=== PATIENT | female | born 1985 | race Caucasian/White ===

== ENCOUNTER 2019-05-03 06:00 | Inpatient (IN) ==
[2019-05-03] MEDS ORDERED: Ondansetron 4 MG/2 ML VIAL IVP PRN (06:30)
[2019-05-03] MEDS ORDERED: Oxytocin 20 units/ LR 1000 mL 20 UNIT/1,000 ML BAG IVC SCH ×2 (06:30→18:35)
[2019-05-03] MEDS ORDERED: Famotidine 20 MG/2 ML VIAL IVP PRN (06:30)
[2019-05-03] MEDS ORDERED: Ringers Solution, Lactated 1,000 ML IVC SCH (06:30)
[2019-05-03] MEDS ORDERED: *HR* Nalbuphine 10 MG/ML AMPUL IVP PRN (06:30)
[2019-05-03] MEDS ORDERED: Naloxone 0.4 MG/ML INJ IVP PRN (06:30)
[2019-05-03] MEDS ORDERED: Metoclopramide 10 MG/2 ML VIAL IVP PRN (06:30)
[2019-05-03] MEDS ORDERED: Ringers Solution, Lactated 1,000 ML ONE (06:38)
[2019-05-03 06:47] LABS: Basophils % 0.2 %; Eosinophils # 0.2 K/mcL (0.0-0.6); Eosinophils % 1.9 %; Hematocrit 35.5 % (35.3-44.9); Hemoglobin 11.7 g/dL (11.5-15.4); Immature Granulocytes % 0.7 % (0-4); Lymphocytes # 2.3 K/mcL (0.6-4.6); Mean Corpuscular Hemoglobin 27.9 pg (28.0-33.3); Mean Corpuscular Volume 84.5 fL (83.0-100.0); Mean Platelet Volume 11.1 fL (9.4-12.4); Monocytes # 0.7 K/mcL (0.0-1.3); Monocytes % 6.5 %; Platelet Count 222 K/mcL (140-400); Red Cell Distribution Width 13.5 % (11.5-14.5); Segmented Neutrophils % 70.7 %; White Blood Count 11.3 K/mcL (4.3-11.1)
[2019-05-03 07:27] LABS: Amphetamine Screen,Urine Negative ng/mL (Cutoff=1000); Barbiturate Screen,Urine Negative ng/mL (Cutoff=200)
[2019-05-03 07:29] LABS: Benzodiazepines Screen,Urine Negative ng/mL (Cutoff=300); Cannabinoid Screen,Urine Negative ng/mL (Cutoff = 50); Cocaine Screen,Urine Negative ng/mL (Cutoff= 300); Opiate Screen,Urine Negative ng/mL (Cutoff=300); Phencyclidine Screen,Urine Negative ng/mL (Cutoff=25)
[2019-05-03] MEDS ORDERED: Acetaminophen 325 MG TABLET PO ONE (09:43)
[2019-05-03] MEDS ORDERED: Epidural Premix (fent/bupiv) 110 ML EP ONE (11:56)
[2019-05-03] MEDS ORDERED: Epidural Premix (fent/bupiv) 110 ML EP SCH (12:00)
--- NOTE | 2019-05-03 12:33 | OB/GYN History & Physical ---
Date of Encounter: 05/03/19 Time of Encounter: 12:30 Assessment and Plan (1) 40 weeks gestation of Current visit: Yes Status: Acute 33yo at 40+0wks GA who presents for scheduled IOL 1. Admission to L&D - eIOL at term for maternal age and favorable cervix - martinez/pitocin, OK for internal monitors - normal growth at 37wks GA, VTX presentation - GBS negative, OK for epidural when patient desires 2. MWB - denies VB/LOF/contraction(S) - UTD PNC with Krystina 3. FWB - good FM - S = D Dispo: Admission to labor and delivery for scheduled IOL at term. MD TRACI History of Present Illness Chief complaint: IOL at term HPI: Ms. Hand is a 33 year old female at 40+0wks GA who presents for scheduled eIOL. Patient doing well. Denies n/v/d. Denies VB/LOF/c ontraction(S). Reports to have an active fetus. No complication(S) this . Patient is with very sensitive vaginal examination. GBS negative, otherwise uncomplicated. Desires epidural. Past Med Surg Social Fam HX - Past Medical History Medical history: asthma Psychiatric history: no psych history - Past Surgical History Additional surgical history: wisdom teeth - Social History Smoking Status: Never smoker Smokeless Tobacco Status: No Alcohol use: none Drug use: none - Family History Grandmother Adopted: No Family Member Ethnicity: Non- Living Status: Still Living Hx Family Cardiac Disorders: No Hx Family Respiratory Disorders: No Hx Family Cancer: No Hx Family GI Disorders: No Hx Family Genitourinary Disorders: No Hx Family Endocrine Disorder: Yes Hx Family Musculoskeletal Disorders: No Hx Family Neuromuscular Disorders: No Hx Family Neurologic Disorders: No Hx Family HEENT Disorders: No Hx Family Autoimmune Disorders: No Hx Family Reproductive Disorders: No Hx Family Psychosocial Disorders: No Hx Family Medical Disorders: No Obstetrical History - Pregnancies : 2 Para: 1 Term: 1 : 0 Ab's: 0 Livin Medications and Allergies Allergy/AdvReac Type Severity Reaction Status Date / Time morphine Allergy Severe Hives Verified 12/07/15 17:01 Penicillins [PCN] Allergy Rash Verified 12/07/15 16:06 Exam - Constitutional Constitutional: well developed, well nourished, no acute distress, average body habitus - HEENT HEENT: Normocephaly, Mucus Membranes Moist - Neck Neck exam: full ROM - Lungs Respiratory exam: CTAB - Cardiovascular Cardiovascular exam: RRR - Abdomen Abdomen: Present: bowel sounds normal - Extremities Extremities exam: normal inspection Deep Tendon Reflex Grade: 2+ Normal - Vagina Vagina: Present: normal moisture - Cervix Dilation: 2 Effacement: 70 Station: -3 - Uterus Uterus exam: Present: normal size, normal contour - Anus/Rectum Anus/Rectum: Present: normal perianal skin, heme negative Results Result Diagrams: 05/03/19 06:25 Abnormal lab results WBC 11.3 K/mcL (4.3-11.1) H 05/03/19 06:25 MCH 27.9 pg (28.0-33.3) L 05/03/19 06:25 All other labs normal. - VTE Reasons for not Prescribing Prophylaxis: Treatment not Indicated - Low risk for VTE
--- NOTE | 2019-05-03 13:07 | Anesthesia Evaluation PreOp ---
Date of Encounter: 05/03/19 Time of Encounter: 12:00 - Past History Planned Operation: EMELIA Cardiac History: Denies any Significant Hx Pulmonary History: Asthma PERMANENT WAVER History: Denies Any Significant HX Other Medical History: Denies Any Significant HX Anesthesia History: No Prior Anesthetic Complications : Yes Test: Negative Alcohol Use: none Drug use: none Medications and Allergies Allergy/AdvReac Type Severity Reaction Status Date / Time morphine Allergy Severe Hives Verified 12/07/15 17:01 Penicillins [PCN] Allergy Rash Verified 12/07/15 16:06 - Meds/Allergy Pre-op Review Medications Reviewed: Yes Allergies Reviewed: Yes Beta Blockers on Current Med List: No Anesthesia Results - Labs 05/03/19 06:25 Anesthesia Exam - HEENT Pupil (Motor): Pupils equal Mallampati: II Teeth: Normal Oral Opening: Greater than 3 - PERMANENT WAVER LOC: Oriented PERMANENT WAVER Motor: Normal RUE, Normal LUE, Normal RLE, Normal LLE, Normal Face PERMANENT WAVER Sensory: Normal: RUE, LUE, RLE, LLE, Face - Cardiac Rhythm: Regular Murmur: None JVD: No Carotid Bruit: No - Pulmonary Breath Sounds: bilateral Clear Respiratory Effort: Symmetrical Anesthesia Assess/Plan ASA Score: 2 Level of consciousness: Cooperative Anesthetic Plan: Epidural
--- NOTE | 2019-05-03 13:10 | Anesthesia Procedures ---
Date of Encounter: 05/03/19 Time of Encounter: 12:00 Procedures: Anesthesia - Epidural/Spinal Patient ID/Chart reviewed: Yes Patient examined: Yes OB Eval: Gestational age: 40 OB Eval: : 4 OB Eval: Hx Para: 1 OB Eval: Dilated at (cm): 4 OB Eval: Contractions: Non-stressed pattern Consent Obtained: Yes Site Prep: Aseptic Technique, Sterile prep and drape, Povidone-Iodine 1% Patient position: upright Amount of Local Anesthetic used: 3 Touhy Needle Gauge: 18 Touhy Needle Depth (cm): 7 Catheter Depth at Skin (cm): 9 Test Dose Result: Negative Loading Dose: 0.25% Marcaine (mls): 10 Loading Dose Administered: Thru Catheter Infusion Rate (mls/hr): [address]: Tegaderm, Tape Interspace Used: L4-L5 Loss of Resistance (TODD): Yes Blood: No CSF: No Paresthesia: No Vitals + FHT's: stable throughout see nursing notes
--- NOTE | 2019-05-03 16:17 | OB/GYN Procedure Note ---
Delivery - Delivery Date: 05/03/19 Provider: Luz Flaherty Intrapartum events: none Delivery induction: AROM, oxytocin, martinez Delivery augmentation: pitocin Delivery monitor: external FHT, external uterine, internal uterine Anesthesia: epidural Quantitated Blood Loss: 200 - (s) A Infant Delivery Date: 05/03/19 Delivery Time: 15:49 Presentation: vertex Position: AURELIA Gender: Female Viability: Viable Pounds: 8 Ounces: 10 Weight Gram: 3.9 kg at 1 minute: 8 at 5 mins: 9 Shoulder Dystocia: not encountered Specimens collected: cord blood Placenta: spontaneous Cord: nuchal cord (Nuchal x2, reduced.) - Repair Episiotomy: none Laceration Description: Perineal - 2nd Degree - Complications Delivery complications: none - Comments Comments: Called to bedside for C/C/+1. Patient comfortable with epidural, however, with ease, she decended to +2 station. With adequate maternal effort, the patient delivered in the AURELIA position over an intact perineum. Nuchal x2 was appreciated, and reduced following delivery of head. Baby girl (Lisa) was vigorous and crying, and placed on maternal abdomen. Cord clamping was delayed for 60 seconds. Cord was then clamped and cut, cord blood and segment was obtained. The placenta was then delivered at 1556 with gentle but appropriate traction. IV pitocin was restarted to aid with uterine contraction. Upon examination of the perineum, a 2nd degree laceration was appreciated with hemostatic, bilateral periurethral laceration(s). The second degree midline perineal laceration was repaired using 3-0 vicryl in a running locked fashion until the level of the introitus, and then a crown stitch was performed to the apex of the laceration. We subcutaneously ran the stitch upward, back toward the vagina and buried the knot in the usual fashion for a second degree laceration. Hemostasis was appreciated. Counts were correct x3. Baby girl Apgars: 8/9 EFW: 8#10oz, 3900gms Delivery time: 1549 Placental delivery: 1556 Repairs: second degree laceration I was present for the entirety of the procedure. Luz Flaherty MD [facility] - [facility]
--- NOTE | 2019-05-03 18:14 | OB Labor Progress Note ---
Date of Encounter: 05/03/19 Time of Encounter: 13:45 Labor Progress Note - Subjective Subjective: Patient resting comfortably with epidural in place. - Cervix Cervix: 5/80/-1 - Heart Tones Heart Tones: Reactive FHR with occasional variable - Halfway House Halfway House: 2-3 min - Interventions Interventions: SVE AROM for moderate amount of clear fluid IUPC placed for accurate contraction monitoring. - Plan Physician notified: Yes Physician notified details: Dr. Flaherty aware of SROM and current SVE Plan: Continue Pitocin induction Frequent position change with peanut ball. Anticipate
[2019-05-03] MEDS ORDERED: Benzocaine/Menthol 56 GM AEROSOL SPRAY TP PRN (18:35)
[2019-05-03] MEDS ORDERED: Lanolin 7 G OINT...G. TP PRN (18:35)
[2019-05-03] MEDS: Acetaminophen 325 MG TABLET PO PRN (19:35)
[2019-05-03] MEDS: Ibuprofen 600 MG TABLET PO PRN (19:47)
[2019-05-03] MEDS: *HR* OxyCODONE Immed Rel 5 MG TABLET PO PRN (21:45)
[2019-05-04] MEDS: Ibuprofen 600 MG TABLET PO PRN ×4 (02:11→20:48)
[2019-05-04] MEDS: Acetaminophen 325 MG TABLET PO PRN (02:12)
[2019-05-04] MEDS: *HR* OxyCODONE Immed Rel 5 MG TABLET PO PRN ×3 (03:35→20:48)
[2019-05-04] MEDS: Prenatal Vit/FA 1 EACH TABLET PO SCH (09:03)
--- NOTE | 2019-05-04 11:23 | OB/GYN Progress Note ---
Date of Encounter: 05/04/19 Time of Encounter: 11:15 - Assessment and Plan (1) Vaginal delivery Current Visit: Yes Status: Acute Stable PPD #1 Continue current management Anticipate discharge tomorrow. (2) Breast feeding status of mother Current Visit: Yes Status: Acute Subjective - Subjective Interval history: Stable, increased pain overnight, currently managed on po pain medication, complains of feeling hot and sweaty. . Patient reports: appetite normal, voiding normally, pain well controlled, ambulating normally [place]: doing well, nursing well Objective - Latest Vital Signs Latest vital signs: Vital Signs Temp Pulse Resp BP Pulse Ox 05/04/19 08:30 98.1 F 104 14 134/79 98 05/04/19 04:10 98.5 F 95 18 119/73 96 05/03/19 20:30 98.4 F 98 14 134/86 98 05/03/19 19:30 97.9 F 96 16 118/70 96 05/03/19 18:34 98.5 F 105 16 118/70 Intake and Output 05/03/19 05/04/19 05/04/19 23:59 07:59 15:59 Intake Total 800 / 800 100 / 100 Output Total 600 / 600 Balance 200 / 200 100 / 100 Intake: Oral 800 / 800 100 / 100 Output: Urine 600 / 600 Other: Weight 112.7 kg - Exam Lungs: bilateral: normal Chest: Normal S1, Normal S2 Abdomen: Present: soft, gravid Uterus: Present: firm Uterus Position: At Umbilicus
[2019-05-05] MEDS: Ibuprofen 600 MG TABLET PO PRN ×2 (03:22→09:19)
--- NOTE | 2019-05-05 08:29 | Discharge Summary ---
Date of Encounter: 05/05/19 Time of Encounter: 08:27 - Discharge Diagnosis (1) Vaginal delivery Priority: Primary Status: Acute Comments: S/P vaginal delivery day 2 Pain is well controlled Lochia is light and without clots tolerating regular diet; passing flatus voiding without difficulty Discharge home today POC per consult with Dr Cordon - Discharge Medications Prescriptions: New Mupirocin [Bactroban Oint] 1 appl TP BID tube Breast Pump [BREAST PUMP] 1 each .ROUTE AD #1 each Docusate [Colace] 100 mg PO BID #30 capsule Benzocaine/Menthol [place] [Dermoplast [place]] 1 appl TP QID PRN aerosol PRN Reason: See Comments Lanolin [Lansinoh] 1 appl TP TID PRN oint...g. PRN Reason: Ibuprofen [Motrin] 600 mg PO Q6HR PRN #30 tablet PRN Reason: Cramping Acetaminophen [Tylenol] 650 mg PO Q6HR PRN tablet PRN Reason: Mild Pain Home Medications: Acetaminophen [Tylenol] 650 mg PO Q6HR PRN tablet 05/05/19 [Rx] Benzocaine/Menthol [place] [Dermoplast [place]] 1 appl TP QID PRN aerosol 05/05/19 [Rx] Breast Pump [BREAST PUMP] 1 each .ROUTE AD #1 each 05/05/19 [Rx] Docusate [Colace] 100 mg PO BID #30 capsule 05/05/19 [Rx] Ibuprofen [Motrin] 600 mg PO Q6HR PRN #30 tablet 05/05/19 [Rx] Lanolin [Lansinoh] 1 appl TP TID PRN oint...g. 05/05/19 [Rx] Mupirocin [Bactroban Oint] 1 appl TP BID tube 05/05/19 [Rx] Allergies/Adverse Reactions: Allergy/AdvReac Type Severity Reaction Status Date / Time morphine Allergy Severe Hives Verified 12/07/15 17:01 Penicillins [PCN] Allergy Rash Verified 12/07/15 16:06 Data Procedures and tests throughout hospitalization: Laboratory Tests 05/03/19 05/03/19 06:25 06:25 WBC 11.3 H RBC 4.20 Hgb 11.7 Hct 35.5 MCV 84.5 MCH 27.9 L MCHC 33.0 RDW 13.5 Plt Count 222 MPV 11.1 Immature Gran % 0.7 Seg Neutrophils % 70.7 Lymphocytes % 20.0 Monocytes % 6.5 Eosinophils % 1.9 Basophils % 0.2 Neutrophils # 8.0 Lymphocytes # 2.3 Monocytes # 0.7 Eosinophils # 0.2 Basophils # 0.0 Urine Opiates Screen Negative Ur Buprenorphine Scrn Negative Ur Barbiturates Screen Negative Ur Phencyclidine Scrn Negative Ur Amphetamines Screen Negative U Benzodiazepines Scrn Negative Urine Cocaine Screen Negative U Marijuana (THC) Screen Negative Ur Drug Screen Interp See Below Date of admission: 05/03/19 06:05 Primary care physician: PCP NONE Consults: 05/03/19 18:35 Consult to Scientific Aide [CONS] Routine Comment: Vaginal delivery, consult needed Discharging clinician: Luz Klein Anticipated date of discharge: 05/05/19 - Patient Status Disposition: Home, Self-Care Condition: Good Functional capacity at discharge: independent ambulation Overall status at discharge: patient is progressing back to baseline - Discharge Instructions Follow Up With: NONE,PCP [Primary Care Provider] - Luz Flaherty MD [Partnered Physician] - - Diet and Activity Activity: increase activity as tolerated Diet: regular diet Hospital Course Reason for admission: IUP at term Delivery: Episiotomy: none Laceration: 2nd degree Other procedures: none complications: none Discharge diagnosis: IUP at term delivered baby: female Time Attestation: Total time spent providing and/or coordinating discharge services: Time Spent: Less than 30 minutes Exam - Constitutional Vitals: Temp Pulse Resp BP Pulse Ox 98.2 F 86 16 124/78 96 05/05/19 06:14 05/05/19 06:14 05/05/19 06:14 05/05/19 06:14 05/05/19 06:14 General appearance IM: cooperative, A&O X 3, answers questions appropriately (Tearful) - Respiratory Respiratory exam: Present: CTAB - Cardiovascular Cardiovascular exam IM: Present: RRR, +S1, +S2 - GI/Abdominal GI/Abdominal exam IM: normal bowel sounds, soft - Uterine Tone: Firm Uterus Position: 2 Fingers Below Umbilicus, Midline - Extremities Exam Extremities exam IM: Present: normal capillary refill, normal inspection, radial pulses palpable and symmetrical - Neurological Exam Neurological exam: alert, oriented X3
[2019-05-05 09:10] VITALS: BP 133/86
[2019-05-05] MEDS: Prenatal Vit/FA 1 EACH TABLET PO SCH (09:18)
== END 2019-05-05 10:10 | disposition home or self-care (01) | DRG 560 ==
LOC: 1NENULAB 06:05 → 1NENUOBS 18:33
PROVIDERS: ADMIT Student in an Organized Health Care Education/Training Program; ATTEND Student in an Organized Health Care Education/Training Program